=== PATIENT | male | born 1935 | race Hispanic/Latino ===

== ENCOUNTER → 2018-03-28 | Outpatient (CLI) | payer OTHER ==
[~2018-03-28] MED LIST: ASPI-555 PO; DONE5TAB33 PO; DUTA.5 PO; FAMO20TA8 PO; FLUO20TA29 PO; IBUP-2077 PO; LOSA1TAB37 PO; PRAV20TA4 PO; TAMS0.4C32 PO; TRAZ-185 PO
== END | disposition home or self-care (01) ==
LOC: OIH 11:03
PROVIDERS: ATTEND Family Medicine
DX: M25.551 Pain in right hip (principal)
CPT/HCPCS: 73502

== ENCOUNTER → 2018-08-10 | Outpatient (CLI) | payer OTHER | END | disposition home or self-care (01) | LOC: SHCH 13:31 | PROVIDERS: ATTEND Internal Medicine Cardiovascular Disease | DX: R06.02 Shortness of breath (principal) | CPT/HCPCS: 93306 ==

== ENCOUNTER → 2018-09-04 | Outpatient (CLI) | payer OTHER | END | disposition home or self-care (01) | LOC: OIH 12:55 | PROVIDERS: ATTEND Family Medicine | DX: M47.896 Other spondylosis, lumbar region (principal); M85.88 Other specified disorders of bone density and structure, other site; M25.50 Pain in unspecified joint | CPT/HCPCS: 72040; 72100 ==

== ENCOUNTER → 2018-12-27 | Outpatient (CLI) | payer OTHER | END | disposition home or self-care (01) | LOC: RAH 07:43 | PROVIDERS: ATTEND Family Medicine | DX: K80.20 Calculus of gallbladder without cholecystitis without obstruction (principal); N28.1 Cyst of kidney, acquired; I70.0 Atherosclerosis of aorta; M47.815 Spondylosis without myelopathy or radiculopathy, thoracolumbar region | CPT/HCPCS: 71046; 76700 ==

== ENCOUNTER → 2019-03-01 | Outpatient (CLI) | payer OTHER | END | disposition home or self-care (01) | LOC: OIH 15:16 | PROVIDERS: ATTEND Family Medicine | DX: M50.323 Other cervical disc degeneration at C6-C7 level (principal); M43.16 Spondylolisthesis, lumbar region; M25.511 Pain in right shoulder | CPT/HCPCS: 72040 ==

== ENCOUNTER 2019-07-30 10:01 | Day surgery (SDC) | payer OTHER ==
[~2019-07-30] VITALS: Ht 165.1 cm; Wt 72.6 kg
[~2019-07-30 10:01] MED LIST changes: +AMLO5TAB9 PO; +ASPI-1026 PO; -ASPI-555 PO; +ATOR40TA71 PO; -DUTA.5 PO; -FAMO20TA8 PO; +FAMO40TA7 PO; -FLUO20TA29 PO; +FLUO40CA7 PO; +FOLI1TAB15 PO; +GABA-529 PO; -LOSA1TAB37 PO; +LOSA1TAB54 PO; +MECL-111 PO; +OXYB5TAB10 PO; -PRAV20TA4 PO; +PRED20TA3 PO; +SODIUM CHLORIDE 0.9% 1000ML 1,000 ML IV ONE; +TRAM50TA4 PO; +TYL3 PO; +VITA400C70 PO
[2019-07-30 12:33] VITALS: BP 113/32
[2019-07-30] MEDS ORDERED: PROPOFOL 10 MG/ML 20ML VIAL IV ONE (13:18)
[2019-07-30 13:25] VITALS: BP 117/52
[2019-07-30 13:30] VITALS: BP 133/52
[2019-07-30 13:35] VITALS: BP 146/53
[2019-07-30 13:40] VITALS: BP 126/58
[2019-07-30 13:45] VITALS: BP 115/50
== END 2019-07-30 14:15 | disposition home or self-care (01) ==
LOC: DAH 10:01 → ENDO 10:01
PROVIDERS: ATTEND Internal Medicine Gastroenterology
DX: K92.1 Melena (principal); R12 Heartburn; K29.50 Unspecified chronic gastritis without bleeding; D12.4 Benign neoplasm of descending colon; K21.0 Gastro-esophageal reflux disease with esophagitis; K31.89 Other diseases of stomach and duodenum; K57.30 Diverticulosis of large intestine without perforation or abscess without bleeding; K64.0 First degree hemorrhoids; F32.9 Major depressive disorder, single episode, unspecified; J45.909 Unspecified asthma, uncomplicated; M81.0 Age-related osteoporosis without current pathological fracture; I10 Essential (primary) hypertension; F41.9 Anxiety disorder, unspecified; Z79.82 Long term (current) use of aspirin; Z79.899 Other long term (current) drug therapy; Z82.49 Family history of ischemic heart disease and other diseases of the circulatory system
CPT/HCPCS: 43239; 45380; 82948 ×3; 88305; A4215; A4221; A4222; A4223; A4606; A4663; J2704; J7030

== ENCOUNTER → 2020-04-03 | Outpatient (CLI) | payer OTHER ==
[~2020-04-03] MED LIST changes: -MECL-111 PO; +MECL-160 PO; -OXYB5TAB10 PO; +OXYB5TAB15 PO; -SODIUM CHLORIDE 0.9% 1000ML 1,000 ML IV ONE; +VITA-164 PO; -VITA400C70 PO
== END | disposition home or self-care (01) ==
LOC: SHCH 14:18
PROVIDERS: ATTEND Internal Medicine Cardiovascular Disease
DX: I73.89 Other specified peripheral vascular diseases (principal)
CPT/HCPCS: 93925

== ENCOUNTER → 2020-06-30 | Outpatient (CLI) | payer OTHER | END | disposition home or self-care (01) | LOC: SHCH 08:40 | PROVIDERS: ATTEND Internal Medicine Cardiovascular Disease | DX: I08.8 Other rheumatic multiple valve diseases (principal); Z95.2 Presence of prosthetic heart valve | CPT/HCPCS: 93306 ==

== ENCOUNTER → 2021-01-18 | Outpatient (CLI) | payer OTHER ==
[~2021-01-18] VITALS: Ht 167.6 cm; Wt 73.0 kg
[~2021-01-18] MED LIST changes: +AMLO-257 PO; -AMLO5TAB9 PO; +REGADENOSON 0.4 MG/5 ML PF SYG IVP SCH
== END | disposition home or self-care (01) ==
LOC: SHCH 08:39
PROVIDERS: ATTEND Internal Medicine Cardiovascular Disease
DX: I25.10 Atherosclerotic heart disease of native coronary artery without angina pectoris (principal); E78.00 Pure hypercholesterolemia, unspecified; R06.00 Dyspnea, unspecified; R53.83 Other fatigue
CPT/HCPCS: 78452; 93017; 96374; A9500 ×2; J2785